=== PATIENT | female | born 1935 | race Two or more races ===

== ENCOUNTER 2018-12-08 14:14 | Emergency (ER) | payer OTHER ==
[~2018-12-08] VITALS: Ht 152.4 cm; Wt 72.6 kg
[~2018-12-08 14:14] MED LIST: ASA81 MG; ATENOLOL50 MG PO; DIOVAN320 MG PO; SYNTHROID50 MCG PO; ZOCOR20 MG
== END 2018-12-08 18:06 | disposition home or self-care (01) ==
LOC: ER 14:14
DX: R42 Dizziness and giddiness (principal)

== ENCOUNTER 2024-08-28 15:50 | Inpatient (IN) | payer OTHER ==
[~2024-08-28] VITALS: Ht 152.4 cm; Wt 54.4 kg
[2024-08-28] MEDS ORDERED: CLONAZEPAM 0.5 MG TABLET PO ONE (17:45)
[2024-08-28] MEDS ORDERED: LORazepam 1 MG TABLET PO ONE (17:45)
[2024-08-28] MEDS ORDERED: LORazepam 2 MG/ML VIAL ONE ×2 (17:58→21:08)
[2024-08-28 18:19] LABS: HEMATOCRIT 43.2 % (36.0-45.00); HEMOGLOBIN 14.6 g/dL (12.0-15.00); MEAN CELL VOLUME 90.1 fL (80.00-100.00); MEAN CORPUSCULAR HEMOGLOBIN 30.4 pg (27.00-32.0); MEAN CORPUSCULAR HGB CONC 33.7 g/dl (32.0-36.0); PLATELET COUNT 148 K/uL (150-450); RED BLOOD COUNT 4.79 M/uL (4.00-6.00)
[2024-08-28] MEDS ORDERED: LORazepam 2 MG/ML VIAL IM ONE ×2 (18:30→21:15)
[2024-08-28 18:57] LABS: INR 1.08; PARTIAL THROMBOPLASTIN TIME 27.4 SECONDS (22.0-34.0); PROTHROMBIN TIME 11.7 SECONDS (9.0-11.5)
[2024-08-28 18:58] LABS: ALBUMIN 3.8 gm/dL (3.4-5.0); BILIRUBIN TOTAL 1.25 mg/dL (0.3-1.2); CALCIUM 9.3 mg/dL (8.5-10.1); CREATININE SERUM 1.14 mg/dL (0.55-1.02); GFR 44.88; GLOBULINA 2.5 G/DL (2.4-3.5); POTASSIUM 3.41 mEq/L (3.5-5.1); TOTAL PROTEIN 6.3 gm/dL (6.4-8.2)
[2024-08-28] MEDS ORDERED: 0.9 % SODIUM CHLORIDE 1,000 ML IV ONE (19:45)
[2024-08-28 20:34] LABS: PH,URINE 7.5 (5.0-8.0); URINE APPEARANCE Clear; URINE BILIRRUBIN Negative (NEGATIVE); URINE BLOOD Negative; URINE COLOR Yellow; URINE GLUCOSE Negative (NEGATIVE); URINE KETONE 15 (NEGATIVE); URINE LEUKOCYTE Moderate; URINE NITRATE Negative; URINE PROTEIN Trace (NEGATIVE)
[2024-08-28 20:38] LABS: URINE BACTERIA 195.8 uL (0.0-1933); URINE EPITHELIAL CELLS 17.8 uL (0.0-38.8); URINE RBC 13.6 uL (0.0-20.8); URINE WBC 5.5 uL (0.0-23.2)
[2024-08-28 20:40] LABS: URINE CAST 0.44 uL (0.0-1.40)
[2024-08-28] MEDS ORDERED: MORPHINE SULFATE 2 MG/ML SYRINGE IV ONE (21:45)
[2024-08-28] MEDS ORDERED: DIPHENHYDRAMINE HCL 50 MG/ML VIAL 1ML ONE (22:03)
[2024-08-28] MEDS ORDERED: DIPHENHYDRAMINE HCL 50 MG/ML VIAL 1ML IV ONE (22:15)
[2024-08-28] MEDS ORDERED: HALOPERIDOL LACTATE 5 MG/ML AMPUL IM ONE (22:15)
[2024-08-28] MEDS ORDERED: NITROGLYCERIN IN 5 % DEXTROSE 50 MG/250 ML BOTTLE IV ONE (23:09)
[2024-08-28] MEDS ORDERED: PIPERACILLIN/TAZOBACTAM SODIUM 3.375 GM VIAL IV ONE ×2 (23:30→23:37)
[2024-08-28] MEDS ORDERED: TICAGRELOR 90 MG TABLET PO ONE (23:45)
[2024-08-28] MEDS ORDERED: NITROGLYCERIN IN 5 % DEXTROSE 250 ML IV SCH (23:45)
[2024-08-29 00:54] LABS: ABG PH 7.428 (7.35-7.45); ABG PO2 108.5 mmHg (80-100); ABG pCO2 37.4 mmHg (35-45); BASE EXCESS 0.2 mmol/l; BICARBONATE 24.2 mmol/l (23-25); SaO2 98.3 %; Tco2 25.3 mmol/l
[2024-08-29] MEDS ORDERED: LABETALOL HCL 100 MG/20 ML ML IV PUSH STA (00:59)
[2024-08-29 01:53] LABS: o2 32 %
[2024-08-29 01:54] LABS: allen test SATISFACTORY; mode NASAL CANNULA; puncture site RADIAL RIGHT
[2024-08-29] MEDS ORDERED: METOPROLOL SUCCINATE 25 MG TAB.SR.24H PO SCH (14:59)
[2024-08-29 15:00] VITALS: BP 177/91; O2SAT 100
[2024-08-29] MEDS ORDERED: 0.9 % SODIUM CHLORIDE 1,000 ML IV SCH (15:00)
[2024-08-29] MEDS ORDERED: LOSARTAN POTASSIUM 50 MG TABLET PO SCH (15:00)
[2024-08-29] MEDS ORDERED: ENOXAPARIN SODIUM 30 MG/0.3 ML SYRINGE SUBCUTANEO SCH (15:01)
[2024-08-29] MEDS ORDERED: ACETAMINOPHEN 500 MG GEL..CAP PO PRN (15:15)
[2024-08-29 16:00] VITALS: BP 156/91; O2SAT 96
[2024-08-29 17:00] VITALS: BP 166/95; O2SAT 94
[2024-08-29] MEDS ORDERED: TICAGRELOR 90 MG TABLET PO SCH (17:00)
[2024-08-29] MEDS ORDERED: ATORVASTATIN CALCIUM 40 MG TABLET PO SCH (17:00)
[2024-08-29 17:24] LABS: COVID-19 AG NEGATIVE (NEGATIVE)
[2024-08-29 17:27] LABS: CKMB 6.2 NG/ML (0.5-3.6)
[2024-08-29] MEDS ORDERED: GABAPENTIN 100 MG CAPSULE PO SCH (21:00)
[2024-08-29 22:08] VITALS: BP 160/80
[2024-08-30] VITALS (10 sets, daily range): BP systolic 135–170; BP diastolic 78–90; O2SAT 95–98
[2024-08-30] MEDS ORDERED: LEVOTHYROXINE SODIUM 88 MCG TABLET PO SCH (06:00)
[2024-08-30 07:38] LABS: INR 1.06; PARTIAL THROMBOPLASTIN TIME 28.5 SECONDS (22.0-34.0); PROTHROMBIN TIME 11.5 SECONDS (9.0-11.5)
[2024-08-30 07:53] LABS: HEMATOCRIT 41.1 % (36.0-45.00); HEMOGLOBIN 13.6 g/dL (12.0-15.00); MEAN CELL VOLUME 89.7 fL (80.00-100.00); MEAN CORPUSCULAR HEMOGLOBIN 29.6 pg (27.00-32.0); PLATELET COUNT 152 K/uL (150-450); RED BLOOD COUNT 4.58 M/uL (4.00-6.00); RED CELL DISTRIBUTION WIDTH 13.9 % (11.5-14.5)
[2024-08-30 07:54] LABS: CKMB 5.5 NG/ML (0.5-3.6)
[2024-08-30 07:55] LABS: PH,URINE 5.5 (5.0-8.0); URINE APPEARANCE Cloudy; URINE BILIRRUBIN Small (NEGATIVE); URINE BLOOD Large; URINE COLOR Dark Yellow; URINE GLUCOSE Negative (NEGATIVE); URINE KETONE Trace (NEGATIVE); URINE LEUKOCYTE Trace; URINE NITRATE Negative
[2024-08-30 07:59] LABS: URINE BACTERIA 237.4 uL (0.0-1933); URINE CAST 4.71 uL (0.0-1.40); URINE EPITHELIAL CELLS 35.4 uL (0.0-38.8); URINE WBC 187.2 uL (0.0-23.2)
[2024-08-30 08:00] LABS: ALBUMIN 3.3 gm/dL (3.4-5.0); BILIRUBIN TOTAL 1.12 mg/dL (0.3-1.2); CALCIUM 8.5 mg/dL (8.5-10.1); CREATININE SERUM 0.81 mg/dL (0.55-1.02); GFR 66.58; GLOBULINA 2.2 G/DL (2.4-3.5); PHOSPHOROUS 3.1 mg/dL (2.5-4.9); POTASSIUM 3.32 mEq/L (3.5-5.1); TOTAL PROTEIN 5.5 gm/dL (6.4-8.2); TSH 1.56 uIU/mL (0.358-3.74)
[2024-08-30 08:01] LABS: C-REACTIVE PROTEIN 2.62 MG/DL (0.00-0.29)
[2024-08-30 08:21] LABS: ERYTHROCYTE SEDIMENTATION RATE 30 mm/hr
[2024-08-30 08:24] LABS: URINE PROTEIN 300 (NEGATIVE); URINE RBC > 10558.9 uL (0.0-20.8)
[2024-08-30 08:27] LABS: URINE CRYSTALS FEW /HPF; URINE MUCUS MODERATE; URINE YEAST NEGATIVE /hpf
[2024-08-30] MEDS ORDERED: NITROGLYCERIN IN 5 % DEXTROSE 250 ML IV SCH (11:00)
[2024-08-30] MEDS ORDERED: POTASSIUM CHLORIDE 20MEQ/100ML H2O PB IV NR (11:00)
[2024-08-30 15:35] LABS: ALBUMIN 3.2 gm/dL (3.4-5.0); BILIRUBIN TOTAL 1.09 mg/dL (0.3-1.2); CREATININE SERUM 1.04 mg/dL (0.55-1.02); GFR 49.89; GLOBULINA 2.1 G/DL (2.4-3.5); POTASSIUM 5.14 mEq/L (3.5-5.1); TOTAL PROTEIN 5.3 gm/dL (6.4-8.2)
[2024-08-30 15:52] LABS: CKMB 4.9 NG/ML (0.5-3.6)
[2024-08-30] MEDS ORDERED: LORazepam 2 MG/ML VIAL IV PRN (21:00)
[2024-08-31] VITALS (9 sets, daily range): BP systolic 120–204; BP diastolic 74–98; O2SAT 20–99
[2024-08-31] MEDS ORDERED: SODIUM CHLORIDE 0.45 % 1,000 ML IV SCH (07:00)
[2024-08-31] MEDS ORDERED: LOSARTAN POTASSIUM 100 MG TABLET PO SCH (09:00)
[2024-08-31] MEDS ORDERED: NIFEDIPINE 30 MG TAB.SA.OSM PO SCH (17:00)
[2024-09-01] VITALS (10 sets, daily range): BP systolic 122–160; BP diastolic 73–85; O2SAT 88–100
[2024-09-01 06:29] LABS: HEMATOCRIT 41.4 % (36.0-45.00); HEMOGLOBIN 13.9 g/dL (12.0-15.00); MEAN CELL VOLUME 89.5 fL (80.00-100.00); MEAN CORPUSCULAR HGB CONC 33.6 g/dl (32.0-36.0); PLATELET COUNT 148 K/uL (150-450); RED BLOOD COUNT 4.62 M/uL (4.00-6.00)
[2024-09-01 06:54] LABS: BILIRUBIN TOTAL 0.9 mg/dL (0.3-1.2); CALCIUM 8.2 mg/dL (8.5-10.1); CREATININE SERUM 0.7 mg/dL (0.55-1.02); GFR 78.79; GLOBULINA 2.3 G/DL (2.4-3.5); PHOSPHOROUS 2.3 mg/dL (2.5-4.9); POTASSIUM 3.4 mEq/L (3.5-5.1); TOTAL PROTEIN 5.3 gm/dL (6.4-8.2)
[2024-09-01] MEDS ORDERED: POTASSIUM PHOS,M-BASIC-D-BASIC 18 MM in 0.9 % SODIUM CHLORIDE 500 ML IV NR (10:30)
[2024-09-02 00:44] VITALS: O2SAT 95
[2024-09-02 02:51] VITALS: BP 136/69
[2024-09-02 04:27] VITALS: O2SAT 97
[2024-09-02 06:58] LABS: URINE PROT QUANT 24HR 18.5 MG/DL
[2024-09-02 07:09] LABS: URINE PROT QUANT 24 HR 388.5 MG/24HR (42-225)
[2024-09-02 08:49] VITALS: BP 129/65
[2024-09-02] MEDS ORDERED: LIPITOR40 M1 PO (12:47)
[2024-09-02] MEDS ORDERED: ATIVAN1 M1 PO (12:47)
[2024-09-02] MEDS ORDERED: Procardia Xl 30MG TA PO (12:47)
[2024-09-02] MEDS ORDERED: BRILINTA90 MG PO (12:47)
[2024-09-02] MEDS ORDERED: GABAPENTIN100 MG PO (12:47)
[2024-09-02] MEDS ORDERED: ISOSORBIDE MONO60 MG PO (12:47)
[2024-09-02] MEDS ORDERED: LEVOTHYROXINE88 MCG PO (12:47)
[2024-09-02] MEDS ORDERED: LOSARTAN POTAS100 MG PO (12:47)
[2024-09-02] MEDS ORDERED: TOPROL XL25 M1 PO (12:47)
== END 2024-09-02 14:09 | DRG 281 ==
LOC: ER 15:51 → MEDI 08-29 15:26
PROVIDERS: General Practice; Internal Medicine Geriatric Medicine; ADMIT Internal Medicine; ATTEND Internal Medicine
PROC: BR20ZZZ Computerized Tomography (CT Scan) of Cervical Spine (ICD-10-PCS; principal; 2024-08-28)
PROC: BW28ZZZ Computerized Tomography (CT Scan) of Head (ICD-10-PCS; 2024-08-28)
PROC: B246ZZZ Ultrasonography of Right and Left Heart (ICD-10-PCS; 2024-08-29)
PROC: 4A12X4Z Monitoring of Cardiac Electrical Activity, External Approach (ICD-10-PCS; 2024-08-30)
DX: I21.4 Non-ST elevation (NSTEMI) myocardial infarction (principal); N17.8 Other acute kidney failure; E86.0 Dehydration; E78.49 Other hyperlipidemia; F03.90 Unspecified dementia, unspecified severity, without behavioral disturbance, psychotic disturbance, mood disturbance, and anxiety; E87.6 Hypokalemia; I11.0 Hypertensive heart disease with heart failure; E03.9 Hypothyroidism, unspecified

== ENCOUNTER 2024-09-29 13:28 | Inpatient (IN) | payer OTHER ==
[~2024-09-29] VITALS: Ht 165.1 cm; Wt 54.4 kg
[2024-09-29] VITALS (7 sets, daily range): BP systolic 152–170; BP diastolic 71–89; O2SAT 96–99
[~2024-09-29 13:28] MED LIST changes: +ATIVAN1 M1 PO; +BRILINTA90 MG PO; +GABAPENTIN100 MG PO; +ISOSORBIDE MONO60 MG PO; +LEVOTHYROXINE88 MCG PO; +LIPITOR40 M1 PO; +LOSARTAN POTAS100 MG PO; +Procardia Xl 30MG TA PO; +TOPROL XL25 M1 PO
--- NOTE | 2024-09-29 14:00 | NUR ---
SE RECIBE FEMINA ALERTA Y ORIENTADA EN COMPANIA DE [facility]. PACIENTE REFIERE DOLOR DE PECHO. SE MIDEN S/V, SE REALIZA EKG Y SE PRESENTA A DR DE LA TORRE. PACIENTE ESTUVO HOSPITALIZADA EL MES DE TD POR DX NSTEMI.
[2024-09-29] MEDS ORDERED: ASPIRIN 325 MG TABLET.EC PO STA (14:10)
[2024-09-29 14:55] LABS: BASO % 0.3 % (0.1-1.2); EOS # 0.02 (0.04-0.54); EOS % 0.3 % (0.7-7.0); HEMATOCRIT 44.3 % (34.1-44.9); LYMPH # 1.04 (1.18-3.74); LYMPH % 17.8 % (19.3-53.1); MEAN CORPUSCULAR HEMOGLOBIN 29.2 pg (25.6-32.2); MONO # 0.47 (0.24-0.82); MONO % 8.1 % (4.7-12.5); NEUT # 4.27 (1.56-6.13); NEUT % 73.3 % (34.0-71.1); PLATELET COUNT 156 K/uL (163-369); RED BLOOD COUNT 5.13 M/uL (3.93-5.22); RED CELL DISTRIBUTION WIDTH 13.5 % (11.6-14.4)
--- NOTE | 2024-09-29 14:55 | NUR ---
PTE ALERRTA,ESTABLE Y ORIENTADA.SE EDUCA SOBRE EL TRATAMIENTO QUE RECIBIRA EN EL HOSPITAL Y ESTA REFIERE ENTENDER.SE LE KEVIN MUESTRAS Y SE LE ADMINISTRA MEDICAMENTOS TERA ORDEN MEDICA
[2024-09-29 15:11] LABS: INR 1.1; PARTIAL THROMBOPLASTIN TIME 26.6 SECONDS (22.0-34.0); PROTHROMBIN TIME 11.9 SECONDS (9.0-11.5)
[2024-09-29 15:13] LABS: COVID-19 AG NEGATIVE (NEGATIVE); INFLUENZA A AG NEGATIVE (NEGATIVE)
[2024-09-29 15:27] LABS: CALCIUM 8.7 mg/dL (8.5-10.1); CREATININE SERUM 1.34 mg/dL (0.55-1.02); GFR 37.24
[2024-09-29] MEDS ORDERED: NITROGLYCERIN IN 5 % DEXTROSE 50 MG/250 ML BOTTLE IV ONE (15:33)
[2024-09-29 15:34] LABS: POTASSIUM 2.67 mEq/L (3.5-5.1)
[2024-09-29] MEDS ORDERED: NITROGLYCERIN IN 5 % DEXTROSE 50 MG/250 ML BOTTLE IV SCH (15:45)
[2024-09-29] MEDS ORDERED: POTASSIUM CHLORIDE IN 0.9%NACL 1,000 ML IV NR (15:45)
[2024-09-29] MEDS ORDERED: KETOROLAC TROMETHAMINE 30 MG VIAL ONE (18:26)
[2024-09-29] MEDS ORDERED: DEXAMETHASONE SODIUM PHOSPHATE 4 MG/ML VIAL ONE (18:26)
[2024-09-29] MEDS ORDERED: TICAGRELOR 90 MG TABLET PO SCH (21:42)
[2024-09-29] MEDS ORDERED: ENOXAPARIN SODIUM 40 MG/0.4 ML SYRINGE SUBCUTANEO SCH (21:43)
[2024-09-29] MEDS ORDERED: ATORVASTATIN CALCIUM 40 MG TABLET PO SCH (21:43)
[2024-09-29] MEDS ORDERED: ONDANSETRON HCL 4 MG in 0.9 % SODIUM CHLORIDE 50 ML IV PRN (21:45)
[2024-09-29] MEDS ORDERED: ASPIRIN 325 MG TABLET PO ONE (21:45)
[2024-09-29] MEDS ORDERED: ACETAMINOPHEN 500 MG GEL..CAP PO PRN (21:45)
[2024-09-29] MEDS ORDERED: ENOXAPARIN SODIUM 40 MG/0.4 ML SYRINGE SUBCUTANEO ONE (22:33)
[2024-09-29 23:29] LABS: MAGNESIUM 1.8 mg/dL (1.8-2.4); PHOSPHOROUS 3.3 mg/dL (2.5-4.9)
[2024-09-30] VITALS (13 sets, daily range): BP systolic 143–199; BP diastolic 71–96; O2SAT 96–100
[2024-09-30] MEDS ORDERED: TICAGRELOR 90 MG TABLET PO ONE (05:18)
[2024-09-30] MEDS ORDERED: LEVOTHYROXINE SODIUM 88 MCG TABLET PO SCH (06:00)
[2024-09-30] MEDS ORDERED: METOPROLOL SUCCINATE 25 MG TAB.SR.24H PO SCH (09:00)
[2024-09-30] MEDS ORDERED: FAMOTIDINE/PF 20 MG in 0.9 % SODIUM CHLORIDE 8 ML IV PUSH SCH (09:00)
[2024-09-30] MEDS ORDERED: ASPIRIN 81 MG TAB.CHEW PO SCH (09:00)
[2024-09-30 09:10] LABS: PH,URINE 5.5 (5.0-8.0); URINE APPEARANCE Clear; URINE BILIRRUBIN Negative (NEGATIVE); URINE BLOOD Trace; URINE COLOR Yellow; URINE GLUCOSE Negative (NEGATIVE); URINE KETONE 15 (NEGATIVE); URINE LEUKOCYTE Small; URINE NITRATE Negative; URINE PROTEIN 30 (NEGATIVE); URINE UROBILINOGEN 0.2 E.U./dl
[2024-09-30 09:15] LABS: URINE BACTERIA 1804.1 uL (0.0-1933); URINE EPITHELIAL CELLS 51.1 uL (0.0-38.8); URINE RBC 7.8 uL (0.0-20.8); URINE WBC 78.5 uL (0.0-23.2)
[2024-09-30 10:10] LABS: URINE CAST 0.14 uL (0.0-1.40)
[2024-09-30 10:11] LABS: URINE CRYSTALS FEW /HPF
[2024-09-30] MEDS ORDERED: LOSARTAN/HYDROCHLOROTHIAZIDE 1 UDTAB TABLET PO SCH (12:30)
[2024-10-01] VITALS (9 sets, daily range): BP systolic 123–176; BP diastolic 64–93; O2SAT 95–100
[2024-10-01 07:45] LABS: ALBUMIN 3.5 gm/dL (3.4-5.0); BILIRUBIN TOTAL 0.87 mg/dL (0.3-1.2); CALCIUM 8.7 mg/dL (8.5-10.1); CREATININE SERUM 0.9 mg/dL (0.55-1.02); GFR 58.95; TOTAL PROTEIN 6.5 gm/dL (6.4-8.2)
[2024-10-01 08:02] LABS: POTASSIUM 2.95 mEq/L (3.5-5.1)
[2024-10-01] MEDS ORDERED: ENOXAPARIN SODIUM 40 MG/0.4 ML SYRINGE SUBCUTANEO SCH (09:00)
[2024-10-01] MEDS ORDERED: POTASSIUM CHLORIDE 20MEQ/100ML H2O PB IV NR (13:00)
[2024-10-01] MEDS ORDERED: ISOSORBIDE MONONITRATE 30 MG TABLET PO SCH (13:56)
[2024-10-01] MEDS ORDERED: POTASSIUM CHLORIDE 20MEQ/100ML H2O PB IV ONE (14:05)
[2024-10-01] MEDS ORDERED: LOSARTAN/HYDROCHLOROTHIAZIDE 1 UDTAB TABLET PO SCH (17:00)
[2024-10-02] VITALS (9 sets, daily range): BP systolic 155–193; BP diastolic 69–88; O2SAT 94–99
[2024-10-02] MEDS ORDERED: LORazepam 2 MG/ML VIAL IV PRN (07:30)
[2024-10-02 08:30] LABS: ALBUMIN 3.1 gm/dL (3.4-5.0); BILIRUBIN TOTAL 0.6 mg/dL (0.3-1.2); GFR 52.2; GLOBULINA 2.3 G/DL (2.4-3.5); POTASSIUM 3.16 mEq/L (3.5-5.1); TOTAL PROTEIN 5.4 gm/dL (6.4-8.2)
[2024-10-02] MEDS ORDERED: METOPROLOL SUCCINATE 100 MG TAB.SR.24H PO SCH (09:00)
[2024-10-02] MEDS ORDERED: METOPROLOL SUCCINATE 50 MG TAB.SR.24H PO SCH (09:00)
[2024-10-02 16:28] LABS: BASO % 0.3 % (0.1-1.2); EOS # 0.09 (0.04-0.54); EOS % 1.2 % (0.7-7.0); HEMATOCRIT 40.9 % (34.1-44.9); HEMOGLOBIN 13.5 g/dL (11.2-15.7); LYMPH # 0.92 (1.18-3.74); LYMPH % 12.6 % (19.3-53.1); MONO # 0.51 (0.24-0.82); NEUT # 5.74 (1.56-6.13); NEUT % 78.5 % (34.0-71.1); PLATELET COUNT 140 K/uL (163-369); RED BLOOD COUNT 4.65 M/uL (3.93-5.22); RED CELL DISTRIBUTION WIDTH 13.6 % (11.6-14.4)
[2024-10-02] MEDS ORDERED: AMLODIPINE BESYLATE 5 MG TABLET PO SCH (17:00)
[2024-10-02] MEDS ORDERED: QUETIAPINE FUMARATE 50 MG TABLET PO SCH (21:00)
[2024-10-02] MEDS ORDERED: PANTOPRAZOLE SODIUM 40 MG TABLET.DR PO SCH (21:00)
[2024-10-02] MEDS ORDERED: QUETIAPINE FUMARATE 25 MG TABLET PO SCH (21:00)
[2024-10-03] VITALS (7 sets, daily range): BP systolic 91–121; BP diastolic 50–64; O2SAT 95–97
[2024-10-03] MEDS ORDERED: ATORVASTATIN CALCIUM 40 MG TABLET PO SCH (09:00)
[2024-10-03] MEDS ORDERED: POTASSIUM CHLORIDE IN WATER 100 ML IV NR (13:15)
[2024-10-04] VITALS (9 sets, daily range): BP systolic 97–140; BP diastolic 53–66; O2SAT 90–97
[2024-10-04 15:43] LABS: BASO % 0.3 % (0.1-1.2); EOS # 0.09 (0.04-0.54); EOS % 1.5 % (0.7-7.0); HEMATOCRIT 39.7 % (34.1-44.9); LYMPH % 13.1 % (19.3-53.1); MEAN CORPUSCULAR HEMOGLOBIN 29.4 pg (25.6-32.2); MONO # 0.47 (0.24-0.82); MONO % 7.7 % (4.7-12.5); NEUT % 76.6 % (34.0-71.1); PLATELET COUNT 185 K/uL (163-369); RED BLOOD COUNT 4.42 M/uL (3.93-5.22); RED CELL DISTRIBUTION WIDTH 13.4 % (11.6-14.4)
[2024-10-04 17:35] LABS: ALBUMIN 3.1 gm/dL (3.4-5.0); BILIRUBIN TOTAL 0.55 mg/dL (0.3-1.2); CALCIUM 8.1 mg/dL (8.5-10.1); GFR 52.2; GLOBULINA 2.4 G/DL (2.4-3.5); PHOSPHOROUS 3.4 mg/dL (2.5-4.9); POTASSIUM 3.32 mEq/L (3.5-5.1); TOTAL PROTEIN 5.5 gm/dL (6.4-8.2)
[2024-10-05 01:00] VITALS: O2SAT 93
[2024-10-05 02:10] VITALS: BP 154/77; O2SAT 97
[2024-10-05 05:00] VITALS: O2SAT 96
[2024-10-05 08:39] VITALS: BP 116/62; O2SAT 87
[2024-10-05 09:37] VITALS: O2SAT 84
[2024-10-05] MEDS ORDERED: POTASSIUM BICARBONATE/CIT AC 25 MEQ TABLET.EFF PO SCH (13:00)
[2024-10-05 13:24] VITALS: O2SAT 89
[2024-10-05] MEDS ORDERED: POTASSIUM CHLORIDE 10 MEQ CAPSULE PO STA (13:28)
== END 2024-10-05 14:32 | disposition home or self-care (01) | DRG 281 ==
LOC: ER 13:28 → ICU-2 22:00 → MEDI 22:00 → SEC-K 10-01 12:06 → MEDI 10-01 16:30
PROVIDERS: Emergency Medicine; General Practice; Internal Medicine; ADMIT Internal Medicine; ATTEND Internal Medicine
PROC: B246ZZZ Ultrasonography of Right and Left Heart (ICD-10-PCS; principal; 2024-09-29)
PROC: 4A12X4Z Monitoring of Cardiac Electrical Activity, External Approach (ICD-10-PCS; 2024-10-01)
DX: I21.4 Non-ST elevation (NSTEMI) myocardial infarction (principal); N17.9 Acute kidney failure, unspecified; N18.9 Chronic kidney disease, unspecified; I12.9 Hypertensive chronic kidney disease with stage 1 through stage 4 chronic kidney disease, or unspecified chronic kidney disease; E87.6 Hypokalemia; I24.9 Acute ischemic heart disease, unspecified; I13.10 Hypertensive heart and chronic kidney disease without heart failure, with stage 1 through stage 4 chronic kidney disease, or unspecified chronic kidney disease; E03.9 Hypothyroidism, unspecified